=== PATIENT | male | born 1955 | race Caucasian/White ===

== ENCOUNTER 2020-08-15 11:43 | Observation (INO) ==
[2020-08-15] MEDS ORDERED: Naloxone 0.4 MG/ML INJ IVP PRN (14:34)
[2020-08-15] MEDS ORDERED: Ondansetron 4 MG/2 ML VIAL IVP PRN (14:34)
[2020-08-15] MEDS ORDERED: Acetaminophen 325 MG TABLET PO PRN (14:34)
[2020-08-15 14:40] LABS: Basophils % 0.4 %; Eosinophils # 0.3 K/mcL (0.0-0.6); Eosinophils % 4.7 %; Hematocrit 34.7 % (37.5-50.1); Hemoglobin 10.3 g/dL (12.9-16.9); Immature Granulocytes % 0.4 % (0-4); Lymphocytes % 14.2 %; Mean Corpuscular HGB Conc 29.7 g/dL (31.6-35.5); Mean Corpuscular Volume 104.5 fL (83.0-100.0); Mean Platelet Volume 10.2 fL (9.4-12.4); Monocytes # 0.6 K/mcL (0.0-1.3); Monocytes % 8.3 %; Platelet Count 264 K/mcL (140-400); Red Blood Count 3.32 M/mcL (4.19-5.50); Red Cell Distribution Width 14.4 % (11.5-14.5)
[2020-08-15 14:44] LABS: BUN/Creatinine Ratio 28 (6-26); Blood Urea Nitrogen 32 mg/dL (8-23); Calcium 9.1 mg/dL (8.6-10.3); Carbon Dioxide 30 mEq/L (23-29); Chloride 103 mEq/L (98-107); Glucose 189 mg/dL (70-105); Osmolality,Calculated 300 (280-300); Potassium 4.2 mEq/L (3.5-5.1); Sodium 139 mEq/L (136-145); eGFR For African Americans > 60 (> 60); eGFR For Non-African Americans > 60 (> 60)
[2020-08-15] MEDS ORDERED: 0.9 % Sodium Chloride 1,000 ML IVC SCH ×2 (14:45→18:15)
[2020-08-15] MEDS ORDERED: *HR* Dextrose 50 % in Water (Vial) 50 ML VIAL IVP PRN (17:32)
[2020-08-15] MEDS ORDERED: Dextrose Gel 15 GM/37.5 ML TUBE PO PRN ×2 (17:32)
[2020-08-15] MEDS ORDERED: D5% in Water 1,000 ML IVC PRN (17:32)
[2020-08-15] MEDS ORDERED: [UNRECOGNIZED DRUG - OTHER] IH SCH (21:00)
[2020-08-15] MEDS ORDERED: Insulin LISPRO 300 UNITS/3 ML VIAL SUBQ SCH (21:00)
[2020-08-15] MEDS ORDERED: SODIUM CHLORIDE FOR INHALATION 7% IH SCH (21:00)
[2020-08-15 21:34] LABS: Influenza A PCR Negative (Negative); Influenza B PCR Negative (Negative); Resp. Syncytial Virus PCR Negative (Negative)
[2020-08-15 21:39] LABS: SARS-CoV-2 by PCR (In House) Negative (Negative)
[2020-08-15] MEDS ORDERED: Ipratropium/Albuterol Neb 3 ML IH PRN (22:00)
[2020-08-16] MEDS ORDERED: Levothyroxine 25 MCG TABLET PO SCH (06:30)
[2020-08-16 07:09] LABS: Hematocrit 32.6 % (37.5-50.1); Hemoglobin 10.1 g/dL (12.9-16.9); Mean Corpuscular Hemoglobin 32.3 pg (28.0-33.3); Mean Corpuscular Volume 104.2 fL (83.0-100.0); Mean Platelet Volume 10.5 fL (9.4-12.4); Platelet Count 253 K/mcL (140-400); Red Blood Count 3.13 M/mcL (4.19-5.50); Red Cell Distribution Width 14.4 % (11.5-14.5); White Blood Count 6.6 K/mcL (4.3-11.1)
[2020-08-16] MEDS ORDERED: *HR* FentaNYL (PF) 100 MCG/2 ML VIAL ONE ×2 (07:16→09:40)
[2020-08-16] MEDS ORDERED: *HR* Midazolam HCl 2 MG/2 ML VIAL ONE (07:16)
[2020-08-16] MEDS ORDERED: *HR* Propofol 200 MG/20 ML VIAL IVP ONE ×2 (07:17→07:37)
[2020-08-16] MEDS ORDERED: *HR* Succinylcholine 200 MG/10 ML VIAL IVP ONE (07:19)
[2020-08-16] MEDS ORDERED: Lidocaine -MPF 2% 2 ML VIAL ONE (07:19)
[2020-08-16 07:28] LABS: BUN/Creatinine Ratio 31 (6-26); Blood Urea Nitrogen 32 mg/dL (8-23); Calcium 8.9 mg/dL (8.6-10.3); Carbon Dioxide 30 mEq/L (23-29); Chloride 102 mEq/L (98-107); Glucose 175 mg/dL (70-105); Magnesium 1.9 mg/dL (1.6-2.6); Osmolality,Calculated 295 (280-300); Potassium 4.2 mEq/L (3.5-5.1); Sodium 137 mEq/L (136-145); eGFR For African Americans > 60 (> 60); eGFR For Non-African Americans > 60 (> 60)
[2020-08-16] MEDS ORDERED: Ondansetron 4 MG/2 ML VIAL ONE (07:30)
[2020-08-16] MEDS ORDERED: Silver Nitrate Applicator 1 STICK..EA. TP ONE (08:01)
[2020-08-16] MEDS ORDERED: Lidocaine TOPICAL Soln 50 ML BOTTLE ONE (08:02)
[2020-08-16] MEDS ORDERED: Ondansetron 4 MG/2 ML VIAL IVP PRN ×3 (08:15→15:00)
[2020-08-16] MEDS ORDERED: *HR* FentaNYL (PF) 100 MCG/2 ML VIAL IVP PRN (08:15)
[2020-08-16] MEDS ORDERED: Albuterol 2.5 MG/3 ML NEBULIZER IH PRN ×2 (08:15→15:00)
[2020-08-16] MEDS ORDERED: Lidocaine/EPI 1:100k 2% 20 ML VIAL ONE (08:17)
[2020-08-16] MEDS ORDERED: Lidocaine -MPF 1% 5 ML AMPUL ONE (08:21)
[2020-08-16] MEDS ORDERED: Dexmedetomidine HCl 400 MCG/100 ML MLS IVC ONE (08:22)
[2020-08-16] MEDS ORDERED: Nystatin Cream 15 GM TUBE TP SCH (09:00)
[2020-08-16] MEDS ORDERED: Aspirin Enteric Coated 81 MG Tablet PO SCH (09:00)
[2020-08-16] MEDS ORDERED: Furosemide 40 MG TABLET PO SCH (09:00)
[2020-08-16 11:04] VITALS: BP 104/51
[2020-08-16] MEDS: Insulin LISPRO 300 UNITS/3 ML VIAL SUBQ SCH ×2 (11:22→11:26)
[2020-08-16] MEDS ORDERED: D5% in Water 1,000 ML IVC PRN (15:00)
[2020-08-16] MEDS ORDERED: *HR* Dextrose 50 % in Water (Vial) 50 ML VIAL IVP PRN (15:00)
[2020-08-16] MEDS ORDERED: Bisacodyl 10 MG RECTAL SUPPOSITORY RC PRN (15:00)
[2020-08-16] MEDS ORDERED: 0.9 % Sodium Chloride 1,000 ML IVC SCH (15:00)
[2020-08-16] MEDS ORDERED: Naloxone 0.4 MG/ML INJ IVP PRN (15:00)
[2020-08-16] MEDS ORDERED: Acetaminophen 325 MG TABLET PO PRN ×2 (15:00)
[2020-08-16] MEDS ORDERED: Ipratropium/Albuterol Neb 3 ML IH PRN (15:00)
[2020-08-16] MEDS ORDERED: Dextrose Gel 15 GM/37.5 ML TUBE PO PRN ×2 (15:00)
[2020-08-16] MEDS ORDERED: Insulin LISPRO 300 UNITS/3 ML VIAL SUBQ SCH ×2 (16:30→21:00)
[2020-08-16] MEDS ORDERED: Ondansetron ODT 4 MG TAB.RAPDIS PO PRN (16:46)
[2020-08-16] MEDS ORDERED: MENTHOL TP PRN (16:47)
[2020-08-16] MEDS ORDERED: SODIUM CHLORIDE FOR INHALATION 7% IH SCH (21:00)
[2020-08-16] MEDS ORDERED: [UNRECOGNIZED DRUG - OTHER] IH SCH (21:00)
[2020-08-17] MEDS ORDERED: Levothyroxine 25 MCG TABLET PO SCH (06:30)
[2020-08-17] MEDS ORDERED: Furosemide 40 MG TABLET PO SCH (09:00)
[2020-08-17] MEDS ORDERED: Insulin DETEMIR 100 UNIT/ML X5UNITS SUBQ SCH (09:00)
[2020-08-17] MEDS ORDERED: LEVOMEFOLATE CALCIUM 7.5 MG PO SCH (09:00)
[2020-08-17] MEDS ORDERED: Nystatin Cream 15 GM TUBE TP SCH (09:00)
[2020-08-17] MEDS ORDERED: Aspirin Enteric Coated 81 MG Tablet PO SCH (09:00)
== END 2020-08-16 19:30 ==
LOC: 3BNU 11:43 → EMEROOARM 11:43 → SUATTDRO 15:36 → 3BNU 16:46 → 2NENU 23:27
PROVIDERS: ADMIT Internal Medicine; ATTEND Family Medicine

== ENCOUNTER 2020-11-25 14:54 | Inpatient (IN) ==
[2020-11-25] MEDS ORDERED: Clindamycin 600 MG/50 ML 600 MG/50 ML IV.SOLN IVPB ONE (15:11)
[2020-11-25] MEDS ORDERED: Piperacillin/Tazobactam 3.375 GM in Water for inj. (sterile) 20 ML IVP ONE (15:23)
[2020-11-25] MEDS ORDERED: Isovue-370 500 ML BOTTLE IVP ONE (15:23)
[2020-11-25 15:36] LABS: Basophils % 0.2 %; Eosinophils # 0.1 K/mcL (0.0-0.6); Eosinophils % 0.5 %; Hematocrit 28.4 % (37.5-50.1); Hemoglobin 8.6 g/dL (12.9-16.9); Immature Granulocytes % 0.7 % (0-4); Lymphocytes # 0.7 K/mcL (0.6-4.6); Lymphocytes % 4.7 %; Mean Corpuscular HGB Conc 30.3 g/dL (31.6-35.5); Mean Corpuscular Volume 102.5 fL (83.0-100.0); Mean Platelet Volume 9.6 fL (9.4-12.4); Monocytes # 1.3 K/mcL (0.0-1.3); Monocytes % 8.3 %; Neutrophils # 13.1 K/mcL (1.6-8.9); Platelet Count 306 K/mcL (140-400); Red Blood Count 2.77 M/mcL (4.19-5.50); Red Cell Distribution Width 15.1 % (11.5-14.5); Segmented Neutrophils % 85.6 %; White Blood Count 15.3 K/mcL (4.3-11.1)
[2020-11-25 16:16] LABS: Albumin 2.8 g/dL (3.5-5.7); Albumin/Globulin Ratio 0.5 (1.1-2.2); Bilirubin,Direct 0.2 mg/dL (0.0-0.2); Bilirubin,Indirect 0.3 mg/dL (0.0-1.0); Bilirubin,Total 0.5 mg/dL (0.3-1.0); Calcium 8.5 mg/dL (8.6-10.3); Globulin 5.3 g/dL (2.4-3.5); Potassium 4.1 mEq/L (3.5-5.1); Total Protein 8.1 g/dL (6.4-8.9)
[2020-11-25] MEDS ORDERED: Albumin 25% 25gram/100mL 25 GM/100 ML IV.SOLN IVPB ONE (16:28)
[2020-11-25] MEDS: 0.9 % Sodium Chloride 1,000 ML IVC SCH ×2 (18:01→20:19)
[2020-11-25 19:06] LABS: Bacteria,Urine Moderate per hpf (None-Few); Bilirubin,Urine Negative (Negative); Blood,Urine Large (Negative); Clarity,Urine Ex.Turbid (Clear); Color,Urine Yellow (Yellow); Glucose,Urine (UA) Normal (Normal); Ketones,Urine Negative (Negative); Leukocyte Esterase,Urine Large (Negative); Nitrite,Urine Positive (Negative); PH,Urine 6.5 pH Units (5.0-8.0); Protein,Urine 70 mg/dL (Neg-Trace); RBC,Urine 50-100 per hpf (0-3); Specific Gravity,Urine 1.013 (1.010-1.025); Squamous Epithelial Cell,Urine Few per hpf (None-Few); Urobilinogen,Urine Normal (Normal); WBC,Urine TNTC per hpf (0-3)
[2020-11-25] MEDS ORDERED: Naloxone 0.4 MG/ML INJ IVP PRN (21:25)
[2020-11-25] MEDS ORDERED: D5% in Water 1,000 ML IVC PRN (21:30)
[2020-11-25] MEDS ORDERED: 0.9 % Sodium Chloride 1,000 ML IVC SCH (21:30)
[2020-11-25] MEDS ORDERED: *HR* Dextrose 50 % in Water (Vial) 50 ML VIAL IVP PRN (21:30)
[2020-11-25] MEDS ORDERED: Dextrose Gel 15 GM/37.5 ML TUBE PO PRN ×2 (21:30)
[2020-11-25] MEDS ORDERED: Ipratropium/Albuterol Neb 3 ML IH PRN (21:33)
[2020-11-25] MEDS: Insulin DETEMIR 100 UNIT/ML X5UNITS SUBQ SCH (23:10)
[2020-11-26] MEDS: Insulin LISPRO 300 UNITS/3 ML VIAL SUBQ SCH ×4 (00:33→17:05)
[2020-11-26] MEDS: Clindamycin 600 MG/50 ML 600 MG/50 ML IV.SOLN IVPB SCH ×3 (01:19→15:06)
[2020-11-26] MEDS: Piperacillin/Tazobactam 3.375 GM in 0.9 % Sodium Chloride Mini Bag 100 ML IVPB SCH ×3 (01:20→15:06)
[2020-11-26 06:22] LABS: Basophils % 0.3 %; Eosinophils # 0.1 K/mcL (0.0-0.6); Eosinophils % 0.3 %; Hematocrit 24.9 % (37.5-50.1); Hemoglobin 7.4 g/dL (12.9-16.9); Immature Granulocytes % 0.5 % (0-4); Lymphocytes # 0.8 K/mcL (0.6-4.6); Lymphocytes % 5.6 %; Mean Corpuscular HGB Conc 29.7 g/dL (31.6-35.5); Mean Corpuscular Hemoglobin 30.5 pg (28.0-33.3); Mean Corpuscular Volume 102.5 fL (83.0-100.0); Mean Platelet Volume 9.7 fL (9.4-12.4); Monocytes # 1.6 K/mcL (0.0-1.3); Monocytes % 10.7 %; Neutrophils # 12.3 K/mcL (1.6-8.9); Platelet Count 260 K/mcL (140-400); Red Blood Count 2.43 M/mcL (4.19-5.50); Segmented Neutrophils % 82.6 %; White Blood Count 14.9 K/mcL (4.3-11.1)
[2020-11-26] MEDS: 0.9 % Sodium Chloride 1,000 ML IVC SCH ×2 (06:23→13:16)
[2020-11-26 06:47] LABS: Albumin 2.8 g/dL (3.5-5.7); Albumin/Globulin Ratio 0.7 (1.1-2.2); Bilirubin,Total 0.5 mg/dL (0.3-1.0); Potassium 3.8 mEq/L (3.5-5.1); Total Protein 6.8 g/dL (6.4-8.9)
[2020-11-26 07:17] LABS: Estimated Average Glucose 134 mg/dl; Hemoglobin A1C 6.3 %
[2020-11-26] MEDS ORDERED: 0.9 % Sodium Chloride 1,000 ML IVC ONE (13:59)
[2020-11-26] MEDS ORDERED: Bisacodyl 10 MG RECTAL SUPPOSITORY RC PRN (16:11)
[2020-11-26] MEDS ORDERED: Lidocaine -MPF 2% 5 ML VIAL INFILT ONE ×2 (16:34→16:41)
[2020-11-26] MEDS ORDERED: *HR* HYDROmorphone (PF) 1 MG/ML SYRINGE IVP ONE (16:34)
[2020-11-26] MEDS ORDERED: *HR* LORazepam 2 MG/ML VIAL IVP ONE (16:35)
[2020-11-26] MEDS: Norepinephrine 4 MG/254 ML IV.SOLN IVC SCH (19:34)
[2020-11-26] MEDS: Insulin DETEMIR 100 UNIT/ML X5UNITS SUBQ SCH (21:12)
[2020-11-26] MEDS: Albumin Human 5% 12.5 GM/250 ML IV.SOLN IVC SCH (21:18)
[2020-11-27] MEDS: Clindamycin 600 MG/50 ML 600 MG/50 ML IV.SOLN IVPB SCH ×3 (00:30→16:13)
[2020-11-27] MEDS: Piperacillin/Tazobactam 3.375 GM in 0.9 % Sodium Chloride Mini Bag 100 ML IVPB SCH ×3 (00:31→16:13)
[2020-11-27] MEDS: Albumin Human 5% 12.5 GM/250 ML IV.SOLN IVC SCH (00:32)
[2020-11-27] MEDS: Insulin LISPRO 300 UNITS/3 ML VIAL SUBQ SCH ×4 (03:08→18:21)
[2020-11-27 03:35] LABS: Basophils % 0.4 %; Eosinophils # 0.2 K/mcL (0.0-0.6); Eosinophils % 1.4 %; Hematocrit 22.9 % (37.5-50.1); Hemoglobin 6.9 g/dL (12.9-16.9); Immature Granulocytes % 0.6 % (0-4); Lymphocytes # 0.6 K/mcL (0.6-4.6); Lymphocytes % 5.7 %; Mean Corpuscular HGB Conc 30.1 g/dL (31.6-35.5); Mean Corpuscular Hemoglobin 30.8 pg (28.0-33.3); Mean Corpuscular Volume 102.2 fL (83.0-100.0); Mean Platelet Volume 9.6 fL (9.4-12.4); Monocytes % 9.7 %; Neutrophils # 8.6 K/mcL (1.6-8.9); Platelet Count 261 K/mcL (140-400); Red Blood Count 2.24 M/mcL (4.19-5.50); Red Cell Distribution Width 15.2 % (11.5-14.5); Segmented Neutrophils % 82.2 %; White Blood Count 10.5 K/mcL (4.3-11.1)
[2020-11-27 03:45] LABS: INR 1.6; Prothrombin Time 17.8 Seconds (9.4-12.1)
[2020-11-27 03:47] LABS: Activated Partial Thrombo Time 28.8 Seconds (26.0-36.0)
[2020-11-27 03:58] LABS: Albumin 2.7 g/dL (3.5-5.7); Albumin/Globulin Ratio 0.6 (1.1-2.2); Bilirubin,Indirect 0.4 mg/dL (0.0-1.0); Bilirubin,Total 0.4 mg/dL (0.3-1.0); Calcium 7.8 mg/dL (8.6-10.3); Globulin 4.3 g/dL (2.4-3.5); Magnesium 1.8 mg/dL (1.6-2.6); Phosphorous 4.5 mg/dL (2.7-4.5); Potassium 3.7 mEq/L (3.5-5.1)
[2020-11-27] MEDS ORDERED: *HR* Midazolam HCl 5 MG/5 ML VIAL IVP ONE ×2 (08:36→08:49)
[2020-11-27] MEDS ORDERED: Aspirin Enteric Coated 81 MG Tablet PO SCH (09:00)
[2020-11-27] MEDS ORDERED: Nystatin Cream 15 GM TUBE TP SCH (09:00)
[2020-11-27] MEDS ORDERED: LEVOMEFOLATE CALCIUM 7.5 MG PO SCH (09:00)
[2020-11-27] MEDS: Levothyroxine 25 MCG TABLET PO SCH (09:52)
[2020-11-27 12:26] LABS: Basophils # 0.1 K/mcL (0.0-0.2); Basophils % 0.5 %; Eosinophils # 0.1 K/mcL (0.0-0.6); Eosinophils % 1.4 %; Hematocrit 22.5 % (37.5-50.1); Hemoglobin 6.7 g/dL (12.9-16.9); Immature Granulocytes % 0.4 % (0-4); Lymphocytes # 0.5 K/mcL (0.6-4.6); Lymphocytes % 5.4 %; Mean Corpuscular HGB Conc 29.8 g/dL (31.6-35.5); Mean Corpuscular Hemoglobin 30.6 pg (28.0-33.3); Mean Corpuscular Volume 102.7 fL (83.0-100.0); Mean Platelet Volume 9.9 fL (9.4-12.4); Neutrophils # 7.8 K/mcL (1.6-8.9); Platelet Count 265 K/mcL (140-400); Red Blood Count 2.19 M/mcL (4.19-5.50); Red Cell Distribution Width 15.2 % (11.5-14.5); Segmented Neutrophils % 82.3 %; White Blood Count 9.5 K/mcL (4.3-11.1)
[2020-11-27 12:57] LABS: Uric Acid 7.3 mg/dL (2.3-7.6)
[2020-11-27] MEDS: *HR* Heparin 5,000 UNIT/ML VIAL SQ SCH ×2 (14:30→20:35)
[2020-11-27] MEDS: Norepinephrine 4 MG/254 ML IV.SOLN IVC SCH (19:19)
[2020-11-27] MEDS: Insulin DETEMIR 100 UNIT/ML X5UNITS SUBQ SCH (21:05)
[2020-11-27 21:21] LABS: Protein/Creatinine Ratio,Urine 3.02 mg/mg (0.00-0.20); Sodium, Urine 40.6 mEq/L
[2020-11-28] MEDS: Insulin LISPRO 300 UNITS/3 ML VIAL SUBQ SCH ×5 (00:03→23:55)
[2020-11-28] MEDS: Clindamycin 600 MG/50 ML 600 MG/50 ML IV.SOLN IVPB SCH ×3 (00:06→15:48)
[2020-11-28] MEDS: Piperacillin/Tazobactam 3.375 GM in 0.9 % Sodium Chloride Mini Bag 100 ML IVPB SCH ×4 (00:06→23:57)
[2020-11-28 04:20] LABS: Basophils % 0.5 %; Eosinophils # 0.2 K/mcL (0.0-0.6); Eosinophils % 3.3 %; Hematocrit 22.5 % (37.5-50.1); Hemoglobin 6.6 g/dL (12.9-16.9); Immature Granulocytes % 0.5 % (0-4); Lymphocytes # 0.5 K/mcL (0.6-4.6); Lymphocytes % 7.9 %; Mean Corpuscular HGB Conc 29.3 g/dL (31.6-35.5); Mean Corpuscular Hemoglobin 30.1 pg (28.0-33.3); Mean Corpuscular Volume 102.7 fL (83.0-100.0); Mean Platelet Volume 9.8 fL (9.4-12.4); Monocytes # 0.6 K/mcL (0.0-1.3); Monocytes % 10.5 %; Neutrophils # 4.6 K/mcL (1.6-8.9); Platelet Count 240 K/mcL (140-400); Red Blood Count 2.19 M/mcL (4.19-5.50); Red Cell Distribution Width 15.3 % (11.5-14.5); Segmented Neutrophils % 77.3 %
[2020-11-28 04:29] LABS: VBG Ionized Calcium 1.13 mmol/L (1.15-1.35)
[2020-11-28 04:38] LABS: Albumin 2.6 g/dL (3.5-5.7); Albumin/Globulin Ratio 0.6 (1.1-2.2); Bilirubin,Direct 0.1 mg/dL (0.0-0.2); Bilirubin,Indirect 0.3 mg/dL (0.0-1.0); Bilirubin,Total 0.4 mg/dL (0.3-1.0); Calcium 7.6 mg/dL (8.6-10.3); Globulin 4.2 g/dL (2.4-3.5); Magnesium 1.8 mg/dL (1.6-2.6); Phosphorous 4.6 mg/dL (2.7-4.5); Potassium 3.7 mEq/L (3.5-5.1); Total Protein 6.8 g/dL (6.4-8.9)
[2020-11-28] MEDS: *HR* Heparin 5,000 UNIT/ML VIAL SQ SCH ×3 (05:44→20:52)
[2020-11-28] MEDS ORDERED: Bisacodyl 10 MG RECTAL SUPPOSITORY RC PRN (06:40)
[2020-11-28] MEDS ORDERED: Naloxone 0.4 MG/ML INJ IVP PRN (06:40)
[2020-11-28] MEDS ORDERED: *HR* Dextrose 50 % in Water (Vial) 50 ML VIAL IVP PRN (06:40)
[2020-11-28] MEDS ORDERED: D5% in Water 1,000 ML IVC PRN (06:40)
[2020-11-28] MEDS ORDERED: Dextrose Gel 15 GM/37.5 ML TUBE PO PRN ×2 (06:40)
[2020-11-28] MEDS ORDERED: Ipratropium/Albuterol Neb 3 ML IH PRN (06:40)
[2020-11-28] MEDS: Chlorhexidine Rinse 15 ML MOUTHWASH PO SCH ×3 (06:51→20:52)
[2020-11-28] MEDS: Collagenase Oint 1 APPL GRAM TP SCH ×3 (06:51→19:35)
[2020-11-28] MEDS: Silver Sulfadiazine 50 GM TUBE TP SCH ×3 (07:33→19:35)
[2020-11-28] MEDS: Aspirin Enteric Coated 81 MG Tablet PO SCH (08:53)
[2020-11-28] MEDS ORDERED: [UNRECOGNIZED DRUG - OTHER] PO SCH (09:00)
[2020-11-28] MEDS: Nystatin Cream 15 GM TUBE TP SCH (09:23)
[2020-11-28] MEDS ORDERED: 0.9 % Sodium Chloride 250 ML ONE (09:48)
[2020-11-28] MEDS: Albumin 25% 25gram/100mL 25 GM/100 ML IV.SOLN IVPB SCH ×2 (15:44→23:57)
[2020-11-28 16:04] LABS: Hematocrit 24.1 % (37.5-50.1); Hemoglobin 7.2 g/dL (12.9-16.9)
[2020-11-28 18:33] LABS: Ferritin 260 ng/mL (20-250); Iron 73 mcg/dL (65-175)
[2020-11-28 19:16] LABS: Folate > 22.3 ng/mL (3.0-16.0); Vitamin B12 859 pg/mL (250-1100)
[2020-11-28] MEDS: Insulin DETEMIR 100 UNIT/ML X5UNITS SUBQ SCH (21:28)
[2020-11-29 00:20] LABS: Hematocrit 22.9 % (37.5-50.1); Hemoglobin 6.9 g/dL (12.9-16.9)
[2020-11-29 04:24] LABS: VBG Ionized Calcium 1.08 mmol/L (1.15-1.35)
[2020-11-29 04:36] LABS: Basophils % 0.6 %; Eosinophils # 0.2 K/mcL (0.0-0.6); Eosinophils % 3.3 %; Hematocrit 22.2 % (37.5-50.1); Hemoglobin 6.6 g/dL (12.9-16.9); Immature Granulocytes % 0.2 % (0-4); Lymphocytes # 0.5 K/mcL (0.6-4.6); Lymphocytes % 9.3 %; Mean Corpuscular HGB Conc 29.7 g/dL (31.6-35.5); Mean Corpuscular Hemoglobin 30.3 pg (28.0-33.3); Mean Corpuscular Volume 101.8 fL (83.0-100.0); Monocytes # 0.6 K/mcL (0.0-1.3); Neutrophils # 3.7 K/mcL (1.6-8.9); Platelet Count 223 K/mcL (140-400); Red Blood Count 2.18 M/mcL (4.19-5.50); Red Cell Distribution Width 16.2 % (11.5-14.5); Segmented Neutrophils % 74.6 %; White Blood Count 4.9 K/mcL (4.3-11.1)
[2020-11-29 04:50] LABS: Albumin 2.8 g/dL (3.5-5.7); Albumin/Globulin Ratio 0.7 (1.1-2.2); Bilirubin,Direct 0.3 mg/dL (0.0-0.2); Bilirubin,Indirect 0.2 mg/dL (0.0-1.0); Bilirubin,Total 0.5 mg/dL (0.3-1.0); Calcium 7.5 mg/dL (8.6-10.3); Globulin 3.9 g/dL (2.4-3.5); Magnesium 1.8 mg/dL (1.6-2.6); Phosphorous 4.8 mg/dL (2.7-4.5); Potassium 3.7 mEq/L (3.5-5.1); Total Protein 6.7 g/dL (6.4-8.9)
[2020-11-29] MEDS: *HR* Heparin 5,000 UNIT/ML VIAL SQ SCH ×3 (05:57→20:47)
[2020-11-29] MEDS: Insulin LISPRO 300 UNITS/3 ML VIAL SUBQ SCH ×3 (05:58→18:05)
[2020-11-29] MEDS: Levothyroxine 25 MCG TABLET PO SCH ×2 (05:59→07:24)
[2020-11-29] MEDS ORDERED: 0.9 % Sodium Chloride 250 ML ONE ×2 (06:43→14:24)
[2020-11-29] MEDS: Albumin 25% 25gram/100mL 25 GM/100 ML IV.SOLN IVPB SCH (08:52)
[2020-11-29] MEDS: Piperacillin/Tazobactam 3.375 GM in 0.9 % Sodium Chloride Mini Bag 100 ML IVPB SCH ×2 (09:01→18:03)
[2020-11-29] MEDS: Aspirin Enteric Coated 81 MG Tablet PO SCH (09:05)
[2020-11-29] MEDS: Nystatin Cream 15 GM TUBE TP SCH (09:05)
[2020-11-29] MEDS: Chlorhexidine Rinse 15 ML MOUTHWASH PO SCH ×2 (09:05→20:48)
[2020-11-29] MEDS: Collagenase Oint 1 APPL GRAM TP SCH ×2 (09:06→21:08)
[2020-11-29] MEDS: Pantoprazole 40 MG VIAL IVP SCH (17:30)
[2020-11-29] MEDS: Silver Sulfadiazine 50 GM TUBE TP SCH ×2 (18:05→21:08)
[2020-11-29] MEDS: Insulin DETEMIR 100 UNIT/ML X5UNITS SUBQ SCH (20:48)
[2020-11-29 21:41] LABS: Hematocrit 23.4 % (37.5-50.1); Hemoglobin 7.2 g/dL (12.9-16.9)
[2020-11-30] MEDS: Insulin LISPRO 300 UNITS/3 ML VIAL SUBQ SCH ×5 (00:46→23:47)
[2020-11-30] MEDS: Piperacillin/Tazobactam 3.375 GM in 0.9 % Sodium Chloride Mini Bag 100 ML IVPB SCH ×4 (00:50→23:37)
[2020-11-30] MEDS ORDERED: Acetaminophen 325 MG TABLET PO PRN (03:51)
[2020-11-30 05:51] LABS: % Iron Saturation 48 % (20-55); Transferrin 108 mg/dL (203-362)
[2020-11-30 05:53] LABS: Basophils % 0.2 %; Eosinophils # 0.1 K/mcL (0.0-0.6); Hematocrit 23.4 % (37.5-50.1); Immature Granulocytes % 0.5 % (0-4); Lymphocytes # 0.5 K/mcL (0.6-4.6); Lymphocytes % 10.7 %; Mean Corpuscular HGB Conc 29.9 g/dL (31.6-35.5); Mean Corpuscular Hemoglobin 29.8 pg (28.0-33.3); Mean Corpuscular Volume 99.6 fL (83.0-100.0); Mean Platelet Volume 9.8 fL (9.4-12.4); Monocytes # 0.5 K/mcL (0.0-1.3); Monocytes % 11.2 %; Neutrophils # 3.3 K/mcL (1.6-8.9); Platelet Count 214 K/mcL (140-400); Red Blood Count 2.35 M/mcL (4.19-5.50); Red Cell Distribution Width 16.2 % (11.5-14.5); Segmented Neutrophils % 74.4 %; White Blood Count 4.4 K/mcL (4.3-11.1)
[2020-11-30 05:59] LABS: VBG Ionized Calcium 1.08 mmol/L (1.15-1.35)
[2020-11-30 06:16] LABS: Albumin 2.8 g/dL (3.5-5.7); Albumin/Globulin Ratio 0.8 (1.1-2.2); Bilirubin,Direct 0.1 mg/dL (0.0-0.2); Bilirubin,Indirect 0.4 mg/dL (0.0-1.0); Bilirubin,Total 0.5 mg/dL (0.3-1.0); Calcium 7.3 mg/dL (8.6-10.3); Globulin 3.6 g/dL (2.4-3.5); Magnesium 1.7 mg/dL (1.6-2.6); Phosphorous 3.2 mg/dL (2.7-4.5); Potassium 3.9 mEq/L (3.5-5.1); Total Protein 6.4 g/dL (6.4-8.9)
[2020-11-30] MEDS: Pantoprazole 40 MG VIAL IVP SCH ×3 (06:29→17:34)
[2020-11-30] MEDS: *HR* Heparin 5,000 UNIT/ML VIAL SQ SCH ×4 (06:29→21:10)
[2020-11-30] MEDS: Levothyroxine 25 MCG TABLET PO SCH ×2 (06:32→08:19)
[2020-11-30] MEDS: Aspirin Enteric Coated 81 MG Tablet PO SCH (08:19)
[2020-11-30] MEDS: Chlorhexidine Rinse 15 ML MOUTHWASH PO SCH ×2 (08:20→21:10)
[2020-11-30] MEDS: Nystatin Cream 15 GM TUBE TP SCH (10:31)
[2020-11-30] MEDS: Collagenase Oint 1 APPL GRAM TP SCH (10:31)
[2020-11-30] MEDS: Silver Sulfadiazine 50 GM TUBE TP SCH (17:35)
[2020-11-30] MEDS: Insulin DETEMIR 100 UNIT/ML X5UNITS SUBQ SCH (21:11)
[2020-12-01] MEDS: Collagenase Oint 1 APPL GRAM TP SCH ×3 (00:17→22:09)
[2020-12-01] MEDS: Silver Sulfadiazine 50 GM TUBE TP SCH ×3 (00:17→22:09)
[2020-12-01 02:55] LABS: Basophils % 0.2 %; Eosinophils # 0.2 K/mcL (0.0-0.6); Eosinophils % 4.6 %; Hematocrit 23.5 % (37.5-50.1); Hemoglobin 7.3 g/dL (12.9-16.9); Immature Granulocytes % 0.7 % (0-4); Lymphocytes # 0.6 K/mcL (0.6-4.6); Lymphocytes % 13.5 %; Mean Corpuscular HGB Conc 31.1 g/dL (31.6-35.5); Mean Corpuscular Hemoglobin 30.4 pg (28.0-33.3); Mean Corpuscular Volume 97.9 fL (83.0-100.0); Mean Platelet Volume 10.1 fL (9.4-12.4); Monocytes # 0.4 K/mcL (0.0-1.3); Monocytes % 8.9 %; Neutrophils # 3.2 K/mcL (1.6-8.9); Platelet Count 230 K/mcL (140-400); Red Cell Distribution Width 16.2 % (11.5-14.5); Segmented Neutrophils % 72.1 %; White Blood Count 4.4 K/mcL (4.3-11.1)
[2020-12-01 03:02] LABS: VBG Ionized Calcium 1.07 mmol/L (1.15-1.35)
[2020-12-01 03:15] LABS: Albumin 2.9 g/dL (3.5-5.7); Albumin/Globulin Ratio 0.8 (1.1-2.2); Bilirubin,Direct 0.1 mg/dL (0.0-0.2); Bilirubin,Indirect 0.3 mg/dL (0.0-1.0); Bilirubin,Total 0.4 mg/dL (0.3-1.0); Calcium 7.4 mg/dL (8.6-10.3); Globulin 3.6 g/dL (2.4-3.5); Magnesium 1.7 mg/dL (1.6-2.6); Phosphorous 3.4 mg/dL (2.7-4.5); Potassium 3.7 mEq/L (3.5-5.1); Total Protein 6.5 g/dL (6.4-8.9)
[2020-12-01] MEDS: Levothyroxine 25 MCG TABLET PO SCH (06:33)
[2020-12-01] MEDS: Pantoprazole 40 MG VIAL IVP SCH ×2 (06:34→18:14)
[2020-12-01] MEDS: Insulin LISPRO 300 UNITS/3 ML VIAL SUBQ SCH ×3 (06:36→18:13)
[2020-12-01] MEDS: *HR* Heparin 5,000 UNIT/ML VIAL SQ SCH ×4 (06:36→22:09)
[2020-12-01] MEDS: Piperacillin/Tazobactam 3.375 GM in 0.9 % Sodium Chloride Mini Bag 100 ML IVPB SCH ×2 (09:05→15:18)
[2020-12-01] MEDS: Chlorhexidine Rinse 15 ML MOUTHWASH PO SCH ×2 (09:06→22:09)
[2020-12-01] MEDS: Aspirin Enteric Coated 81 MG Tablet PO SCH (09:06)
[2020-12-01] MEDS: Nystatin Cream 15 GM TUBE TP SCH (09:07)
[2020-12-01] MEDS: Insulin DETEMIR 100 UNIT/ML X5UNITS SUBQ SCH (22:01)
[2020-12-02] MEDS: Insulin LISPRO 300 UNITS/3 ML VIAL SUBQ SCH ×4 (00:19→18:06)
[2020-12-02] MEDS: Piperacillin/Tazobactam 3.375 GM in 0.9 % Sodium Chloride Mini Bag 100 ML IVPB SCH ×3 (00:19→16:19)
[2020-12-02 04:03] LABS: Basophils % 0.2 %; Eosinophils # 0.1 K/mcL (0.0-0.6); Hematocrit 25.4 % (37.5-50.1); Hemoglobin 7.7 g/dL (12.9-16.9); Immature Granulocytes % 0.4 % (0-4); Lymphocytes # 0.6 K/mcL (0.6-4.6); Lymphocytes % 12.7 %; Mean Corpuscular HGB Conc 30.3 g/dL (31.6-35.5); Mean Corpuscular Hemoglobin 29.7 pg (28.0-33.3); Mean Corpuscular Volume 98.1 fL (83.0-100.0); Monocytes # 0.3 K/mcL (0.0-1.3); Monocytes % 5.7 %; Neutrophils # 3.7 K/mcL (1.6-8.9); Platelet Count 235 K/mcL (140-400); Red Blood Count 2.59 M/mcL (4.19-5.50); Red Cell Distribution Width 16.3 % (11.5-14.5); White Blood Count 4.7 K/mcL (4.3-11.1)
[2020-12-02 04:22] LABS: Albumin 2.8 g/dL (3.5-5.7); Albumin/Globulin Ratio 0.7 (1.1-2.2); Bilirubin,Direct 1.5 mg/dL (0.0-0.2); Bilirubin,Indirect 0.5 mg/dL (0.0-1.0); Calcium 7.6 mg/dL (8.6-10.3); Globulin 3.8 g/dL (2.4-3.5); Magnesium 1.7 mg/dL (1.6-2.6); Potassium 3.8 mEq/L (3.5-5.1); Total Protein 6.6 g/dL (6.4-8.9)
[2020-12-02] MEDS: Pantoprazole 40 MG VIAL IVP SCH ×2 (08:49→18:06)
[2020-12-02] MEDS: *HR* Heparin 5,000 UNIT/ML VIAL SQ SCH ×2 (08:49→13:52)
[2020-12-02] MEDS: Aspirin Enteric Coated 81 MG Tablet PO SCH (09:02)
[2020-12-02] MEDS: Levothyroxine 25 MCG TABLET PO SCH (09:02)
[2020-12-02] MEDS: Silver Sulfadiazine 50 GM TUBE TP SCH ×2 (09:37→21:55)
[2020-12-02] MEDS: Chlorhexidine Rinse 15 ML MOUTHWASH PO SCH ×2 (09:37→21:55)
[2020-12-02] MEDS: Collagenase Oint 1 APPL GRAM TP SCH (09:37)
[2020-12-02] MEDS: Nystatin Cream 15 GM TUBE TP SCH (09:37)
[2020-12-02] MEDS: Insulin DETEMIR 100 UNIT/ML X5UNITS SUBQ SCH (21:57)
[2020-12-03] MEDS: *HR* Heparin 5,000 UNIT/ML VIAL SQ SCH ×4 (00:04→20:03)
[2020-12-03] MEDS: Insulin LISPRO 300 UNITS/3 ML VIAL SUBQ SCH ×5 (00:04→20:00)
[2020-12-03] MEDS: Piperacillin/Tazobactam 3.375 GM in 0.9 % Sodium Chloride Mini Bag 100 ML IVPB SCH ×3 (00:05→16:15)
[2020-12-03 04:55] LABS: VBG Ionized Calcium 1.14 mmol/L (1.15-1.35)
[2020-12-03 05:12] LABS: Eosinophils # 0.3 K/mcL (0.0-0.6); Eosinophils % 5.6 %; Hematocrit 25.1 % (37.5-50.1); Hemoglobin 7.7 g/dL (12.9-16.9); Immature Granulocytes % 0.4 % (0-4); Lymphocytes # 0.5 K/mcL (0.6-4.6); Lymphocytes % 10.8 %; Mean Corpuscular HGB Conc 30.7 g/dL (31.6-35.5); Mean Corpuscular Hemoglobin 30.3 pg (28.0-33.3); Mean Corpuscular Volume 98.8 fL (83.0-100.0); Mean Platelet Volume 10.1 fL (9.4-12.4); Monocytes # 0.3 K/mcL (0.0-1.3); Monocytes % 6.1 %; Neutrophils # 3.4 K/mcL (1.6-8.9); Platelet Count 240 K/mcL (140-400); Red Blood Count 2.54 M/mcL (4.19-5.50); Red Cell Distribution Width 16.2 % (11.5-14.5); Segmented Neutrophils % 77.1 %; White Blood Count 4.5 K/mcL (4.3-11.1)
[2020-12-03 05:16] LABS: Alanine Aminotransferase 39 Units/L (7-52); Albumin 2.8 g/dL (3.5-5.7); Albumin/Globulin Ratio 0.8 (1.1-2.2); Alkaline Phosphatase 578 Units/L (34-104); Aspartate Amino Transferase 92 Units/L (13-39); BUN/Creatinine Ratio 14 (6-26); Bilirubin,Direct 0.9 mg/dL (0.0-0.2); Bilirubin,Indirect 0.5 mg/dL (0.0-1.0); Bilirubin,Total 1.4 mg/dL (0.3-1.0); Blood Urea Nitrogen 20 mg/dL (8-23); Calcium 7.9 mg/dL (8.6-10.3); Carbon Dioxide 21 mEq/L (23-29); Chloride 108 mEq/L (98-107); Globulin 3.7 g/dL (2.4-3.5); Glucose 132 mg/dL (70-105); Magnesium 1.7 mg/dL (1.6-2.6); Osmolality,Calculated 286 (280-300); Phosphorous 2.6 mg/dL (2.7-4.5); Sodium 136 mEq/L (136-145); Total Protein 6.5 g/dL (6.4-8.9); eGFR For African Americans > 60 (> 60); eGFR For Non-African Americans 50 (> 60)
[2020-12-03] MEDS: Pantoprazole 40 MG VIAL IVP SCH ×2 (06:15→16:16)
[2020-12-03] MEDS: Levothyroxine 25 MCG TABLET PO SCH (06:21)
[2020-12-03] MEDS: Aspirin Enteric Coated 81 MG Tablet PO SCH (09:23)
[2020-12-03] MEDS: Chlorhexidine Rinse 15 ML MOUTHWASH PO SCH ×3 (09:24→20:03)
[2020-12-03] MEDS: Nystatin Cream 15 GM TUBE TP SCH (10:00)
[2020-12-03] MEDS: Silver Sulfadiazine 50 GM TUBE TP SCH ×2 (10:06→23:23)
[2020-12-03] MEDS: Acetaminophen 325 MG TABLET PO PRN (10:36)
[2020-12-03] MEDS: DAPTOmycin 800 MG in 0.9 % Sodium Chloride 100 ML IVPB SCH (18:38)
[2020-12-03] MEDS: Insulin DETEMIR 100 UNIT/ML X5UNITS SUBQ SCH (20:03)
[2020-12-04] MEDS: Piperacillin/Tazobactam 3.375 GM in 0.9 % Sodium Chloride Mini Bag 100 ML IVPB SCH ×3 (00:55→15:40)
[2020-12-04 05:16] LABS: Hematocrit 25.2 % (37.5-50.1); Hemoglobin 7.8 g/dL (12.9-16.9); Mean Corpuscular Hemoglobin 30.1 pg (28.0-33.3); Mean Corpuscular Volume 97.3 fL (83.0-100.0); Platelet Count 210 K/mcL (140-400); Red Blood Count 2.59 M/mcL (4.19-5.50); Red Cell Distribution Width 16.3 % (11.5-14.5); White Blood Count 5.2 K/mcL (4.3-11.1)
[2020-12-04 05:24] LABS: INR 1.5
[2020-12-04 05:26] LABS: Activated Partial Thrombo Time 34.5 Seconds (26.0-36.0)
[2020-12-04 05:35] LABS: Alanine Aminotransferase 24 Units/L (7-52); Albumin 2.5 g/dL (3.5-5.7); Albumin/Globulin Ratio 0.8 (1.1-2.2); Alkaline Phosphatase 427 Units/L (34-104); Aspartate Amino Transferase 36 Units/L (13-39); BUN/Creatinine Ratio 15 (6-26); Blood Urea Nitrogen 20 mg/dL (8-23); Calcium 7.1 mg/dL (8.6-10.3); Carbon Dioxide 19 mEq/L (23-29); Chloride 111 mEq/L (98-107); Globulin 3.3 g/dL (2.4-3.5); Glucose 137 mg/dL (70-105); Osmolality,Calculated 289 (280-300); Potassium 3.5 mEq/L (3.5-5.1); Sodium 137 mEq/L (136-145); Total Protein 5.8 g/dL (6.4-8.9); eGFR For African Americans > 60 (> 60); eGFR For Non-African Americans 54 (> 60)
[2020-12-04] MEDS: Pantoprazole 40 MG VIAL IVP SCH ×3 (06:02→16:11)
[2020-12-04] MEDS: *HR* Heparin 5,000 UNIT/ML VIAL SQ SCH ×4 (06:02→21:36)
[2020-12-04] MEDS: Levothyroxine 25 MCG TABLET PO SCH ×2 (06:03→08:59)
[2020-12-04 06:13] LABS: Bacteria,Urine Few per hpf (None-Few); Bilirubin,Urine Negative (Negative); Blood,Urine Large (Negative); Clarity,Urine Ex.Turbid (Clear); Color,Urine Yellow (Yellow); Glucose,Urine (UA) Normal (Normal); Ketones,Urine Negative (Negative); Leukocyte Esterase,Urine Large (Negative); Mucus,Urine Few per lpf (None-Few); Nitrite,Urine Negative (Negative); PH,Urine 6.5 pH Units (5.0-8.0); Protein,Urine 70 mg/dL (Neg-Trace); RBC,Urine 15-30 per hpf (0-3); Specific Gravity,Urine 1.009 (1.010-1.025); Squamous Epithelial Cell,Urine Few per hpf (None-Few); WBC,Urine TNTC per hpf (0-3)
[2020-12-04] MEDS: Insulin LISPRO 300 UNITS/3 ML VIAL SUBQ SCH ×4 (08:19→21:37)
[2020-12-04] MEDS: Aspirin Enteric Coated 81 MG Tablet PO SCH (08:28)
[2020-12-04] MEDS: Chlorhexidine Rinse 15 ML MOUTHWASH PO SCH ×2 (08:28→21:35)
[2020-12-04 08:52] LABS: VBG Ionized Calcium 1.13 mmol/L (1.15-1.35)
[2020-12-04] MEDS: Nystatin Cream 15 GM TUBE TP SCH (09:46)
[2020-12-04] MEDS: Silver Sulfadiazine 50 GM TUBE TP SCH ×2 (09:47→21:38)
[2020-12-04] MEDS ORDERED: Lidocaine Viscous Oral Soln 15 ML SOLUTION ONE (12:01)
[2020-12-04] MEDS ORDERED: *HR* Midazolam HCl 2 MG/2 ML VIAL IV ONE (12:30)
[2020-12-04] MEDS: DAPTOmycin 800 MG in 0.9 % Sodium Chloride 100 ML IVPB SCH (16:02)
[2020-12-04] MEDS: Insulin DETEMIR 100 UNIT/ML X5UNITS SUBQ SCH (21:35)
[2020-12-05] MEDS: Piperacillin/Tazobactam 3.375 GM in 0.9 % Sodium Chloride Mini Bag 100 ML IVPB SCH ×3 (00:45→15:25)
[2020-12-05] MEDS: Pantoprazole 40 MG VIAL IVP SCH ×2 (04:52→08:13)
[2020-12-05] MEDS: *HR* Heparin 5,000 UNIT/ML VIAL SQ SCH ×3 (04:52→21:46)
[2020-12-05 06:05] LABS: Hematocrit 25.7 % (37.5-50.1); Hemoglobin 7.9 g/dL (12.9-16.9); Mean Corpuscular HGB Conc 30.7 g/dL (31.6-35.5); Mean Corpuscular Hemoglobin 30.2 pg (28.0-33.3); Mean Corpuscular Volume 98.1 fL (83.0-100.0); Mean Platelet Volume 10.1 fL (9.4-12.4); Platelet Count 167 K/mcL (140-400); Red Blood Count 2.62 M/mcL (4.19-5.50); Red Cell Distribution Width 16.5 % (11.5-14.5); White Blood Count 4.5 K/mcL (4.3-11.1)
[2020-12-05 06:27] LABS: Alanine Aminotransferase 18 Units/L (7-52); Albumin 2.7 g/dL (3.5-5.7); Albumin/Globulin Ratio 0.7 (1.1-2.2); Alkaline Phosphatase 373 Units/L (34-104); Aspartate Amino Transferase 22 Units/L (13-39); Bilirubin,Direct 0.3 mg/dL (0.0-0.2); Bilirubin,Indirect 0.5 mg/dL (0.0-1.0); Bilirubin,Total 0.8 mg/dL (0.3-1.0); Carbon Dioxide 20 mEq/L (23-29); Chloride 109 mEq/L (98-107); Globulin 3.8 g/dL (2.4-3.5); Glucose 156 mg/dL (70-105); Sodium 138 mEq/L (136-145); Total Protein 6.5 g/dL (6.4-8.9); eGFR For African Americans > 60 (> 60); eGFR For Non-African Americans 52 (> 60)
[2020-12-05 06:32] LABS: BUN/Creatinine Ratio 18 (6-26); Blood Urea Nitrogen 25 mg/dL (8-23); Calcium 7.8 mg/dL (8.6-10.3); Osmolality,Calculated 294 (280-300)
[2020-12-05] MEDS: Levothyroxine 25 MCG TABLET PO SCH (08:10)
[2020-12-05] MEDS: Acetaminophen 325 MG TABLET PO PRN (08:10)
[2020-12-05] MEDS: Aspirin Enteric Coated 81 MG Tablet PO SCH (08:12)
[2020-12-05] MEDS: Chlorhexidine Rinse 15 ML MOUTHWASH PO SCH ×2 (08:13→21:46)
[2020-12-05] MEDS: Insulin LISPRO 300 UNITS/3 ML VIAL SUBQ SCH ×4 (08:19→21:41)
[2020-12-05] MEDS: Nystatin Cream 15 GM TUBE TP SCH (08:22)
[2020-12-05] MEDS: Silver Sulfadiazine 50 GM TUBE TP SCH (08:26)
[2020-12-06] MEDS: Piperacillin/Tazobactam 3.375 GM in 0.9 % Sodium Chloride Mini Bag 100 ML IVPB SCH ×4 (01:01→23:34)
[2020-12-06] MEDS: *HR* Heparin 5,000 UNIT/ML VIAL SQ SCH ×3 (05:25→19:36)
[2020-12-06] MEDS: Silver Sulfadiazine 50 GM TUBE TP SCH ×3 (05:25→19:36)
[2020-12-06] MEDS: Pantoprazole 40 MG VIAL IVP SCH ×2 (05:25→18:17)
[2020-12-06] MEDS: Levothyroxine 25 MCG TABLET PO SCH (05:53)
[2020-12-06 05:56] LABS: Albumin 2.6 g/dL (3.5-5.7); Albumin/Globulin Ratio 0.7 (1.1-2.2); Bilirubin,Direct 0.2 mg/dL (0.0-0.2); Bilirubin,Indirect 0.4 mg/dL (0.0-1.0); Bilirubin,Total 0.6 mg/dL (0.3-1.0); Total Protein 6.6 g/dL (6.4-8.9)
[2020-12-06 06:18] LABS: Hematocrit 25.1 % (37.5-50.1); Hemoglobin 7.6 g/dL (12.9-16.9); Immature Platelets 4.4 % (1.1-6.1); Mean Corpuscular HGB Conc 30.3 g/dL (31.6-35.5); Mean Corpuscular Volume 99.2 fL (83.0-100.0); Mean Platelet Volume 11.2 fL (9.4-12.4); Red Blood Count 2.53 M/mcL (4.19-5.50); Red Cell Distribution Width 16.4 % (11.5-14.5); White Blood Count 3.9 K/mcL (4.3-11.1)
[2020-12-06 06:21] LABS: Calcium 7.6 mg/dL (8.6-10.3); Potassium 4.2 mEq/L (3.5-5.1)
[2020-12-06] MEDS ORDERED: Levothyroxine 25 MCG TABLET PO SCH (06:30)
[2020-12-06] MEDS: Insulin LISPRO 300 UNITS/3 ML VIAL SUBQ SCH ×4 (07:54→19:57)
[2020-12-06] MEDS: Aspirin Enteric Coated 81 MG Tablet PO SCH (09:14)
[2020-12-06] MEDS: Nystatin Cream 15 GM TUBE TP SCH (09:17)
[2020-12-06] MEDS: Chlorhexidine Rinse 15 ML MOUTHWASH PO SCH ×2 (09:17→19:36)
[2020-12-07] MEDS: *HR* Heparin 5,000 UNIT/ML VIAL SQ SCH ×2 (05:09→14:07)
[2020-12-07] MEDS: Pantoprazole 40 MG VIAL IVP SCH ×2 (05:09→17:07)
[2020-12-07] MEDS: Levothyroxine 25 MCG TABLET PO SCH (06:21)
[2020-12-07 07:19] LABS: BUN/Creatinine Ratio 18 (6-26); Blood Urea Nitrogen 26 mg/dL (8-23); Carbon Dioxide 18 mEq/L (23-29); Chloride 109 mEq/L (98-107); Glucose 145 mg/dL (70-105); Osmolality,Calculated 287 (280-300); Potassium 4.3 mEq/L (3.5-5.1); Sodium 135 mEq/L (136-145); eGFR For African Americans > 60 (> 60); eGFR For Non-African Americans 51 (> 60)
[2020-12-07 07:20] LABS: Albumin 2.8 g/dL (3.5-5.7); Albumin/Globulin Ratio 0.7 (1.1-2.2); Bilirubin,Direct 0.3 mg/dL (0.0-0.2); Bilirubin,Indirect 0.3 mg/dL (0.0-1.0); Bilirubin,Total 0.6 mg/dL (0.3-1.0); Total Protein 6.8 g/dL (6.4-8.9)
[2020-12-07] MEDS: Aspirin Enteric Coated 81 MG Tablet PO SCH (09:06)
[2020-12-07] MEDS: Piperacillin/Tazobactam 3.375 GM in 0.9 % Sodium Chloride Mini Bag 100 ML IVPB SCH ×2 (09:06→17:34)
[2020-12-07] MEDS: Insulin LISPRO 300 UNITS/3 ML VIAL SUBQ SCH ×4 (09:09→20:51)
[2020-12-07] MEDS: Nystatin Cream 15 GM TUBE TP SCH (09:10)
[2020-12-07] MEDS: Silver Sulfadiazine 50 GM TUBE TP SCH ×2 (09:10→21:10)
[2020-12-07] MEDS: Chlorhexidine Rinse 15 ML MOUTHWASH PO SCH ×2 (09:10→21:10)
[2020-12-07 09:32] LABS: Basophils % 0.3 %; Hemoglobin 7.6 g/dL (12.9-16.9); Immature Granulocytes % 0.3 % (0-4); Mean Corpuscular Hemoglobin 29.9 pg (28.0-33.3); Red Blood Count 2.54 M/mcL (4.19-5.50)
[2020-12-07 09:34] LABS: Eosinophils # 0.2 K/mcL (0.0-0.6); Eosinophils % 5.1 %; Hematocrit 25.4 % (37.5-50.1); Immature Platelets 7.2 % (1.1-6.1); Lymphocytes # 0.5 K/mcL (0.6-4.6); Lymphocytes % 16.4 %; Mean Corpuscular HGB Conc 29.9 g/dL (31.6-35.5); Mean Platelet Volume 13.4 fL (9.4-12.4); Monocytes # 0.3 K/mcL (0.0-1.3); Monocytes % 10.6 %; Neutrophils # 2.1 K/mcL (1.6-8.9); Red Cell Distribution Width 16.5 % (11.5-14.5); Segmented Neutrophils % 67.3 %; White Blood Count 3.1 K/mcL (4.3-11.1)
[2020-12-07 10:35] LABS: Platelet Count 38 K/mcL (140-400)
[2020-12-07] MEDS ORDERED: Fosfomycin Tromethamine 3 GM Packet PO ONE (11:00)
[2020-12-07 13:09] LABS: Adenovirus Not Detected (Not Detect); Bordetella Pertussis Not Detected (Not Detect); Chlamydophila pneumoniae Not Detected (Not Detect); Coronavirus 229E Not Detected (Not Detect); Coronavirus HKU1 Not Detected (Not Detect); Coronavirus NL63 Not Detected (Not Detect); Coronavirus OC43 Not Detected (Not Detect); Human Metapneumovirus Not Detected (Not Detect); Human Rhinovirus/Enterovirus Not Detected (Not Detect); Influenza A Subtype 2009 H1 Not Detected (Not Detect); Influenza B Not Detected (Not Detect); Mycoplasma pneumoniae Not Detected (Not Detect); Parainfluenza Virus 1 Not Detected (Not Detect); Parainfluenza Virus 2 Not Detected (Not Detect); Parainfluenza Virus 3 Not Detected (Not Detect); Parainfluenza Virus 4 Not Detected (Not Detect); Respiratory Syncytial Virus Not Detected (Not Detect); SARS-CoV-2 Not Detected (Not Detect)
[2020-12-07] MEDS: Folic Acid 1 MG TABLET PO SCH (18:37)
[2020-12-07] MEDS ORDERED: Sodium Chloride for inhalation 3 ML VIAL IH PRN (19:05)
[2020-12-07 21:23] LABS: Mean Corpuscular Volume 98.8 fL (83.0-100.0); White Blood Count 3.4 K/mcL (4.3-11.1)
[2020-12-07 21:24] LABS: Hematocrit 24.8 % (37.5-50.1); Hemoglobin 7.5 g/dL (12.9-16.9); Mean Corpuscular HGB Conc 30.2 g/dL (31.6-35.5); Mean Corpuscular Hemoglobin 29.9 pg (28.0-33.3); Red Blood Count 2.51 M/mcL (4.19-5.50); Red Cell Distribution Width 16.5 % (11.5-14.5)
[2020-12-07 21:26] LABS: Platelet Count 19 K/mcL (140-400)
[2020-12-08] MEDS: Piperacillin/Tazobactam 3.375 GM in 0.9 % Sodium Chloride Mini Bag 100 ML IVPB SCH (00:30)
[2020-12-08] MEDS: Levothyroxine 25 MCG TABLET PO SCH (05:25)
[2020-12-08 05:48] LABS: Basophils % 0.3 %; Hematocrit 25.5 % (37.5-50.1); Immature Granulocytes % 0.3 % (0-4); Mean Corpuscular Volume 99.6 fL (83.0-100.0); Red Blood Count 2.56 M/mcL (4.19-5.50); Red Cell Distribution Width 16.4 % (11.5-14.5)
[2020-12-08 05:50] LABS: Eosinophils # 0.2 K/mcL (0.0-0.6); Eosinophils % 5.6 %; Hemoglobin 7.8 g/dL (12.9-16.9); Immature Platelets 8.2 % (1.1-6.1); Lymphocytes # 0.7 K/mcL (0.6-4.6); Lymphocytes % 18.3 %; Mean Corpuscular HGB Conc 30.6 g/dL (31.6-35.5); Mean Corpuscular Hemoglobin 30.5 pg (28.0-33.3); Monocytes # 0.4 K/mcL (0.0-1.3); Monocytes % 10.8 %; Neutrophils # 2.3 K/mcL (1.6-8.9); Segmented Neutrophils % 64.7 %; White Blood Count 3.6 K/mcL (4.3-11.1)
[2020-12-08 06:01] LABS: Platelet Count 13 K/mcL (140-400)
[2020-12-08 06:03] LABS: Calcium 7.8 mg/dL (8.6-10.3); Potassium 4.2 mEq/L (3.5-5.1)
[2020-12-08 06:04] LABS: Platelet Estimate Decreased (Normal); Reactive Lymphocytes Present (Not Present)
[2020-12-08 06:24] LABS: Toxic Granulation Present (Not Present)
[2020-12-08] MEDS: Insulin LISPRO 300 UNITS/3 ML VIAL SUBQ SCH ×4 (08:56→21:30)
[2020-12-08] MEDS: Folic Acid 1 MG TABLET PO SCH (09:02)
[2020-12-08] MEDS: Aspirin Enteric Coated 81 MG Tablet PO SCH (09:02)
[2020-12-08 09:25] LABS: INR 1.2; Prothrombin Time 13.3 Seconds (9.4-12.1)
[2020-12-08 09:27] LABS: Activated Partial Thrombo Time 29.6 Seconds (26.0-36.0)
[2020-12-08] MEDS: Chlorhexidine Rinse 15 ML MOUTHWASH PO SCH ×2 (10:33→20:00)
[2020-12-08] MEDS: Nystatin Cream 15 GM TUBE TP SCH (10:33)
[2020-12-08] MEDS: Silver Sulfadiazine 50 GM TUBE TP SCH ×2 (10:34→20:00)
[2020-12-09 04:25] LABS: Alanine Aminotransferase 9 Units/L (7-52); Albumin 2.8 g/dL (3.5-5.7); Albumin/Globulin Ratio 0.6 (1.1-2.2); Alkaline Phosphatase 186 Units/L (34-104); Aspartate Amino Transferase 14 Units/L (13-39); BUN/Creatinine Ratio 19 (6-26); Bilirubin,Total 0.5 mg/dL (0.3-1.0); Blood Urea Nitrogen 26 mg/dL (8-23); C-Reactive Protein 65 mg/L (Less than 10); Calcium 7.7 mg/dL (8.6-10.3); Carbon Dioxide 18 mEq/L (23-29); Chloride 108 mEq/L (98-107); Globulin 4.4 g/dL (2.4-3.5); Glucose 169 mg/dL (70-105); Lactate Dehydrogenase 130 Units/L (140-271); Osmolality,Calculated 289 (280-300); Potassium 4.1 mEq/L (3.5-5.1); Sodium 135 mEq/L (136-145); Total Protein 7.2 g/dL (6.4-8.9); eGFR For African Americans > 60 (> 60); eGFR For Non-African Americans 53 (> 60)
[2020-12-09 04:27] LABS: Thyroid Stimulating Hormone 12.339 mcIU/mL (0.340-5.600)
[2020-12-09 04:37] LABS: Basophils % 0.3 %; Eosinophils # 0.2 K/mcL (0.0-0.6); Hematocrit 25.2 % (37.5-50.1); Hemoglobin 7.7 g/dL (12.9-16.9); Immature Granulocytes % 0.6 % (0-4); Immature Platelets 6.3 % (1.1-6.1); Immature Reticulocyte % 19.9 % (11.0-38.0); Lymphocytes # 0.6 K/mcL (0.6-4.6); Lymphocytes % 17.6 %; Mean Corpuscular HGB Conc 30.6 g/dL (31.6-35.5); Mean Corpuscular Volume 98.1 fL (83.0-100.0); Mean Platelet Volume 11.6 fL (9.4-12.4); Monocytes # 0.4 K/mcL (0.0-1.3); Monocytes % 11.9 %; Red Blood Count 2.57 M/mcL (4.19-5.50); Red Cell Distribution Width 16.4 % (11.5-14.5); Retculocyte # 0.03 M/mcL (0.05-0.10); Reticulocyte % 1.2 % (1.6-2.8); Segmented Neutrophils % 63.6 %; White Blood Count 3.2 K/mcL (4.3-11.1)
[2020-12-09 04:38] LABS: Platelet Count 72 K/mcL (140-400)
[2020-12-09] MEDS: Levothyroxine 25 MCG TABLET PO SCH (05:58)
[2020-12-09] MEDS: Aspirin Enteric Coated 81 MG Tablet PO SCH (08:38)
[2020-12-09] MEDS: Nystatin Cream 15 GM TUBE TP SCH (08:39)
[2020-12-09] MEDS: Insulin LISPRO 300 UNITS/3 ML VIAL SUBQ SCH ×4 (08:39→20:22)
[2020-12-09] MEDS: Chlorhexidine Rinse 15 ML MOUTHWASH PO SCH ×2 (08:39→20:22)
[2020-12-09] MEDS: Folic Acid 1 MG TABLET PO SCH (08:39)
[2020-12-09] MEDS: Silver Sulfadiazine 50 GM TUBE TP SCH ×2 (08:40→20:23)
[2020-12-10] MEDS: Piperacillin/Tazobactam 3.375 GM in 0.9 % Sodium Chloride Mini Bag 100 ML IVPB SCH (01:06)
[2020-12-10 03:32] LABS: Hematocrit 25.2 % (37.5-50.1); Hemoglobin 7.7 g/dL (12.9-16.9); Mean Corpuscular HGB Conc 30.6 g/dL (31.6-35.5); Mean Corpuscular Hemoglobin 29.7 pg (28.0-33.3); Mean Corpuscular Volume 97.3 fL (83.0-100.0); Mean Platelet Volume 10.9 fL (9.4-12.4); Platelet Count 134 K/mcL (140-400); Red Blood Count 2.59 M/mcL (4.19-5.50); Red Cell Distribution Width 16.3 % (11.5-14.5); White Blood Count 3.4 K/mcL (4.3-11.1)
[2020-12-10 03:58] LABS: Alanine Aminotransferase 9 Units/L (7-52); Albumin 2.9 g/dL (3.5-5.7); Albumin/Globulin Ratio 0.7 (1.1-2.2); Alkaline Phosphatase 173 Units/L (34-104); Aspartate Amino Transferase 14 Units/L (13-39); BUN/Creatinine Ratio 21 (6-26); Bilirubin,Direct 0.2 mg/dL (0.0-0.2); Bilirubin,Indirect 0.3 mg/dL (0.0-1.0); Bilirubin,Total 0.5 mg/dL (0.3-1.0); Blood Urea Nitrogen 27 mg/dL (8-23); Calcium 8.1 mg/dL (8.6-10.3); Carbon Dioxide 20 mEq/L (23-29); Chloride 108 mEq/L (98-107); Globulin 4.1 g/dL (2.4-3.5); Glucose 170 mg/dL (70-105); Osmolality,Calculated 287 (280-300); Potassium 4.3 mEq/L (3.5-5.1); Sodium 134 mEq/L (136-145); eGFR For African Americans > 60 (> 60); eGFR For Non-African Americans 58 (> 60)
[2020-12-10] MEDS: Levothyroxine 25 MCG TABLET PO SCH ×2 (06:15→08:50)
[2020-12-10] MEDS: Folic Acid 1 MG TABLET PO SCH (08:48)
[2020-12-10] MEDS: Aspirin Enteric Coated 81 MG Tablet PO SCH (08:48)
[2020-12-10] MEDS: Chlorhexidine Rinse 15 ML MOUTHWASH PO SCH ×2 (08:51→22:03)
[2020-12-10] MEDS: Insulin LISPRO 300 UNITS/3 ML VIAL SUBQ SCH ×4 (08:56→20:55)
[2020-12-10 12:22] LABS: Influenza A PCR Negative (Negative); Influenza B PCR Negative (Negative); Resp. Syncytial Virus PCR Negative (Negative)
[2020-12-10 12:48] LABS: SARS-CoV-2 by PCR (In House) Positive (Negative)
[2020-12-10] MEDS: Silver Sulfadiazine 50 GM TUBE TP SCH (19:17)
[2020-12-10] MEDS: Nystatin Cream 15 GM TUBE TP SCH (19:17)
[2020-12-10 22:05] LABS: Lambda Qnt Free Light Chains 233.65 mg/L (5.71-26.30)
[2020-12-11] MEDS: Silver Sulfadiazine 50 GM TUBE TP SCH ×3 (00:15→19:37)
[2020-12-11] MEDS: Levothyroxine 25 MCG TABLET PO SCH (05:55)
[2020-12-11 06:24] LABS: Hematocrit 25.7 % (37.5-50.1); Hemoglobin 7.7 g/dL (12.9-16.9); Mean Corpuscular Hemoglobin 29.7 pg (28.0-33.3); Mean Corpuscular Volume 99.2 fL (83.0-100.0); Mean Platelet Volume 10.3 fL (9.4-12.4); Platelet Count 190 K/mcL (140-400); Red Blood Count 2.59 M/mcL (4.19-5.50); Red Cell Distribution Width 16.3 % (11.5-14.5); White Blood Count 3.4 K/mcL (4.3-11.1)
[2020-12-11 06:56] LABS: BUN/Creatinine Ratio 18 (6-26); Blood Urea Nitrogen 23 mg/dL (8-23); Calcium 8.2 mg/dL (8.6-10.3); Carbon Dioxide 22 mEq/L (23-29); Chloride 109 mEq/L (98-107); Glucose 169 mg/dL (70-105); Osmolality,Calculated 292 (280-300); Potassium 4.3 mEq/L (3.5-5.1); Sodium 137 mEq/L (136-145); eGFR For African Americans > 60 (> 60); eGFR For Non-African Americans 56 (> 60)
[2020-12-11] MEDS: Insulin LISPRO 300 UNITS/3 ML VIAL SUBQ SCH ×4 (08:10→21:20)
[2020-12-11] MEDS: Chlorhexidine Rinse 15 ML MOUTHWASH PO SCH ×2 (10:14→21:20)
[2020-12-11] MEDS: Aspirin Enteric Coated 81 MG Tablet PO SCH (10:14)
[2020-12-11] MEDS: Folic Acid 1 MG TABLET PO SCH (10:14)
[2020-12-11 11:21] LABS: Kappa Qnt Free Light Chains 317.41 mg/L (3.30-19.40)
[2020-12-11 11:21] LABS: Thrombin Time 18.3 sec (14.7-19.5)
[2020-12-11] MEDS: Nystatin Cream 15 GM TUBE TP SCH (12:00)
[2020-12-11 12:09] LABS: Adenovirus Not Detected (Not Detect); Bordetella Pertussis Not Detected (Not Detect); Chlamydophila pneumoniae Not Detected (Not Detect); Coronavirus 229E Not Detected (Not Detect); Coronavirus HKU1 Not Detected (Not Detect); Coronavirus NL63 Not Detected (Not Detect); Coronavirus OC43 Not Detected (Not Detect); Human Metapneumovirus Not Detected (Not Detect); Human Rhinovirus/Enterovirus Not Detected (Not Detect); Influenza A Subtype 2009 H1 Not Detected (Not Detect); Influenza B Not Detected (Not Detect); Mycoplasma pneumoniae Not Detected (Not Detect); Parainfluenza Virus 1 Not Detected (Not Detect); Parainfluenza Virus 2 Not Detected (Not Detect); Parainfluenza Virus 3 Not Detected (Not Detect); Parainfluenza Virus 4 Not Detected (Not Detect); Respiratory Syncytial Virus Not Detected (Not Detect)
[2020-12-11 12:11] LABS: SARS-CoV-2 DETECTED (Not Detect)
[2020-12-12 01:04] LABS: Beta Globulin (PEP) 0.83 g/dL (0.48-1.10)
[2020-12-12] MEDS: Insulin LISPRO 300 UNITS/3 ML VIAL SUBQ SCH ×3 (08:34→17:52)
[2020-12-12] MEDS: Nystatin Cream 15 GM TUBE TP SCH (08:35)
[2020-12-12] MEDS: Silver Sulfadiazine 50 GM TUBE TP SCH (08:35)
[2020-12-12] MEDS: Aspirin Enteric Coated 81 MG Tablet PO SCH (09:13)
[2020-12-12] MEDS: Folic Acid 1 MG TABLET PO SCH (09:13)
[2020-12-12] MEDS: Levothyroxine 25 MCG TABLET PO SCH (09:13)
[2020-12-12] MEDS: Chlorhexidine Rinse 15 ML MOUTHWASH PO SCH (09:13)
[2020-12-12 09:53] LABS: IFE Reflexed NOT DONE
[2020-12-12] MEDS ORDERED: Bamlanivimab 700 MG, Etesevimab 1,400 MG in 0.9 % Sodium Chloride 100 ML IVPB ONE ×2 (18:00→18:54)
[2020-12-12] MEDS ORDERED: methylPREDNISolone 125 MG/2 ML VIAL IVP PRN (18:49)
[2020-12-12] MEDS ORDERED: Ondansetron 4 MG/2 ML VIAL IVP PRN (18:49)
[2020-12-12] MEDS ORDERED: EPINEPHrine 1 MG/ML VIAL IM PRN (18:49)
[2020-12-13] MEDS: Chlorhexidine Rinse 15 ML MOUTHWASH PO SCH ×3 (01:43→21:24)
[2020-12-13] MEDS: Insulin LISPRO 300 UNITS/3 ML VIAL SUBQ SCH ×5 (01:43→21:33)
[2020-12-13] MEDS: Silver Sulfadiazine 50 GM TUBE TP SCH ×3 (01:44→21:24)
[2020-12-13] MEDS: Aspirin Enteric Coated 81 MG Tablet PO SCH (07:58)
[2020-12-13] MEDS: Folic Acid 1 MG TABLET PO SCH (07:58)
[2020-12-13] MEDS: Nystatin Cream 15 GM TUBE TP SCH (07:59)
[2020-12-13] MEDS: Levothyroxine 25 MCG TABLET PO SCH (07:59)
[2020-12-13 22:28] LABS: Basophils % 0.7 %; Eosinophils # 0.2 K/mcL (0.0-0.6); Eosinophils % 5.5 %; Hemoglobin 7.8 g/dL (12.9-16.9); Immature Granulocytes % 0.5 % (0-4); Lymphocytes # 0.8 K/mcL (0.6-4.6); Lymphocytes % 17.4 %; Mean Corpuscular Hemoglobin 29.5 pg (28.0-33.3); Mean Corpuscular Volume 98.5 fL (83.0-100.0); Mean Platelet Volume 9.4 fL (9.4-12.4); Monocytes # 0.5 K/mcL (0.0-1.3); Monocytes % 10.3 %; Neutrophils # 2.9 K/mcL (1.6-8.9); Platelet Count 367 K/mcL (140-400); Red Blood Count 2.64 M/mcL (4.19-5.50); Red Cell Distribution Width 16.6 % (11.5-14.5); Segmented Neutrophils % 65.6 %; White Blood Count 4.4 K/mcL (4.3-11.1)
[2020-12-13 22:47] LABS: BUN/Creatinine Ratio 22 (6-26); Blood Urea Nitrogen 28 mg/dL (8-23); Calcium 8.2 mg/dL (8.6-10.3); Carbon Dioxide 20 mEq/L (23-29); Chloride 108 mEq/L (98-107); Glucose 153 mg/dL (70-105); Osmolality,Calculated 289 (280-300); Potassium 4.2 mEq/L (3.5-5.1); Sodium 135 mEq/L (136-145); eGFR For African Americans > 60 (> 60); eGFR For Non-African Americans 56 (> 60)
[2020-12-14 02:55] LABS: Hematocrit 25.1 % (37.5-50.1); Hemoglobin 7.6 g/dL (12.9-16.9); Mean Corpuscular HGB Conc 30.3 g/dL (31.6-35.5); Mean Corpuscular Volume 99.2 fL (83.0-100.0); Platelet Count 357 K/mcL (140-400); Red Blood Count 2.53 M/mcL (4.19-5.50); Red Cell Distribution Width 16.5 % (11.5-14.5); White Blood Count 5.2 K/mcL (4.3-11.1)
[2020-12-14 03:25] LABS: Alanine Aminotransferase 4 Units/L (7-52); Albumin 2.9 g/dL (3.5-5.7); Albumin/Globulin Ratio 0.7 (1.1-2.2); Alkaline Phosphatase 117 Units/L (34-104); Aspartate Amino Transferase 14 Units/L (13-39); BUN/Creatinine Ratio 22 (6-26); Bilirubin,Total 0.5 mg/dL (0.3-1.0); Blood Urea Nitrogen 28 mg/dL (8-23); Calcium 8.3 mg/dL (8.6-10.3); Carbon Dioxide 18 mEq/L (23-29); Chloride 109 mEq/L (98-107); Globulin 4.4 g/dL (2.4-3.5); Glucose 141 mg/dL (70-105); Osmolality,Calculated 286 (280-300); Potassium 4.4 mEq/L (3.5-5.1); Sodium 134 mEq/L (136-145); Total Protein 7.3 g/dL (6.4-8.9); eGFR For African Americans > 60 (> 60); eGFR For Non-African Americans 55 (> 60)
[2020-12-14] MEDS: Levothyroxine 25 MCG TABLET PO SCH (05:53)
[2020-12-14] MEDS: Aspirin Enteric Coated 81 MG Tablet PO SCH (09:01)
[2020-12-14] MEDS: Folic Acid 1 MG TABLET PO SCH (09:01)
[2020-12-14] MEDS: Chlorhexidine Rinse 15 ML MOUTHWASH PO SCH ×2 (09:02→22:07)
[2020-12-14] MEDS: Insulin LISPRO 300 UNITS/3 ML VIAL SUBQ SCH ×4 (09:05→21:52)
[2020-12-14] MEDS: Silver Sulfadiazine 50 GM TUBE TP SCH ×2 (15:58→21:52)
[2020-12-14] MEDS: Nystatin Cream 15 GM TUBE TP SCH (15:58)
[2020-12-15] MEDS: Levothyroxine 25 MCG TABLET PO SCH (06:09)
[2020-12-15 06:48] LABS: Hematocrit 27.9 % (37.5-50.1); Hemoglobin 8.4 g/dL (12.9-16.9); Mean Corpuscular HGB Conc 30.1 g/dL (31.6-35.5); Mean Corpuscular Hemoglobin 29.9 pg (28.0-33.3); Mean Corpuscular Volume 99.3 fL (83.0-100.0); Mean Platelet Volume 9.6 fL (9.4-12.4); Platelet Count 416 K/mcL (140-400); Red Blood Count 2.81 M/mcL (4.19-5.50); Red Cell Distribution Width 16.6 % (11.5-14.5); White Blood Count 4.8 K/mcL (4.3-11.1)
[2020-12-15 07:09] LABS: Alanine Aminotransferase 7 Units/L (7-52); Albumin 3.1 g/dL (3.5-5.7); Albumin/Globulin Ratio 0.7 (1.1-2.2); Alkaline Phosphatase 125 Units/L (34-104); Aspartate Amino Transferase 12 Units/L (13-39); BUN/Creatinine Ratio 20 (6-26); Bilirubin,Total 0.6 mg/dL (0.3-1.0); Blood Urea Nitrogen 26 mg/dL (8-23); Calcium 8.7 mg/dL (8.6-10.3); Carbon Dioxide 21 mEq/L (23-29); Chloride 107 mEq/L (98-107); Globulin 4.5 g/dL (2.4-3.5); Glucose 152 mg/dL (70-105); Osmolality,Calculated 288 (280-300); Potassium 4.1 mEq/L (3.5-5.1); Sodium 135 mEq/L (136-145); Total Protein 7.6 g/dL (6.4-8.9); eGFR For African Americans > 60 (> 60); eGFR For Non-African Americans 55 (> 60)
[2020-12-15] MEDS: Insulin LISPRO 300 UNITS/3 ML VIAL SUBQ SCH ×4 (07:35→21:55)
[2020-12-15] MEDS: Aspirin Enteric Coated 81 MG Tablet PO SCH (09:26)
[2020-12-15] MEDS: Folic Acid 1 MG TABLET PO SCH (09:26)
[2020-12-15] MEDS: Chlorhexidine Rinse 15 ML MOUTHWASH PO SCH ×2 (09:27→21:55)
[2020-12-15] MEDS: Ammonium Lactate 30 APPL/225 GM BOTTLE TP SCH ×2 (09:38→21:55)
[2020-12-15] MEDS: Nystatin Cream 15 GM TUBE TP SCH (09:38)
[2020-12-15] MEDS: Silver Sulfadiazine 50 GM TUBE TP SCH ×2 (09:38→21:55)
[2020-12-16] MEDS: Levothyroxine 25 MCG TABLET PO SCH (05:43)
[2020-12-16 06:40] LABS: Hematocrit 26.6 % (37.5-50.1); Hemoglobin 7.9 g/dL (12.9-16.9); Mean Corpuscular HGB Conc 29.7 g/dL (31.6-35.5); Mean Corpuscular Hemoglobin 29.8 pg (28.0-33.3); Mean Corpuscular Volume 100.4 fL (83.0-100.0); Mean Platelet Volume 9.6 fL (9.4-12.4); Platelet Count 411 K/mcL (140-400); Red Blood Count 2.65 M/mcL (4.19-5.50); Red Cell Distribution Width 17.1 % (11.5-14.5); White Blood Count 4.4 K/mcL (4.3-11.1)
[2020-12-16 07:01] LABS: Alanine Aminotransferase 7 Units/L (7-52); Albumin 2.9 g/dL (3.5-5.7); Albumin/Globulin Ratio 0.7 (1.1-2.2); Alkaline Phosphatase 110 Units/L (34-104); Aspartate Amino Transferase 10 Units/L (13-39); BUN/Creatinine Ratio 21 (6-26); Bilirubin,Total 0.5 mg/dL (0.3-1.0); Blood Urea Nitrogen 27 mg/dL (8-23); Calcium 8.4 mg/dL (8.6-10.3); Carbon Dioxide 23 mEq/L (23-29); Chloride 108 mEq/L (98-107); Globulin 4.4 g/dL (2.4-3.5); Glucose 182 mg/dL (70-105); Osmolality,Calculated 292 (280-300); Sodium 136 mEq/L (136-145); Total Protein 7.3 g/dL (6.4-8.9); eGFR For African Americans > 60 (> 60); eGFR For Non-African Americans 56 (> 60)
[2020-12-16] MEDS: Chlorhexidine Rinse 15 ML MOUTHWASH PO SCH ×2 (08:21→21:15)
[2020-12-16] MEDS: Aspirin Enteric Coated 81 MG Tablet PO SCH (08:21)
[2020-12-16] MEDS: Folic Acid 1 MG TABLET PO SCH (08:21)
[2020-12-16] MEDS: Insulin LISPRO 300 UNITS/3 ML VIAL SUBQ SCH ×4 (08:43→21:22)
[2020-12-16] MEDS: Nystatin Cream 15 GM TUBE TP SCH (15:10)
[2020-12-16] MEDS: Ammonium Lactate 30 APPL/225 GM BOTTLE TP SCH ×2 (15:10→20:08)
[2020-12-16] MEDS: Silver Sulfadiazine 50 GM TUBE TP SCH ×2 (15:10→20:09)
[2020-12-17 03:07] LABS: Hematocrit 25.6 % (37.5-50.1); Hemoglobin 7.9 g/dL (12.9-16.9); Mean Corpuscular HGB Conc 30.9 g/dL (31.6-35.5); Mean Corpuscular Volume 100.4 fL (83.0-100.0); Mean Platelet Volume 9.6 fL (9.4-12.4); Platelet Count 398 K/mcL (140-400); Red Blood Count 2.55 M/mcL (4.19-5.50); White Blood Count 4.7 K/mcL (4.3-11.1)
[2020-12-17 03:37] LABS: Calcium 8.3 mg/dL (8.6-10.3); Potassium 4.2 mEq/L (3.5-5.1)
[2020-12-17] MEDS: Levothyroxine 25 MCG TABLET PO SCH (06:51)
[2020-12-17] MEDS: Silver Sulfadiazine 50 GM TUBE TP SCH (07:45)
[2020-12-17] MEDS: Aspirin Enteric Coated 81 MG Tablet PO SCH (08:45)
[2020-12-17] MEDS: Insulin LISPRO 300 UNITS/3 ML VIAL SUBQ SCH (08:45)
[2020-12-17] MEDS: Nystatin Cream 15 GM TUBE TP SCH (08:45)
[2020-12-17] MEDS: Chlorhexidine Rinse 15 ML MOUTHWASH PO SCH (08:45)
[2020-12-17] MEDS: Folic Acid 1 MG TABLET PO SCH (08:45)
[2020-12-17] MEDS: Ammonium Lactate 30 APPL/225 GM BOTTLE TP SCH (08:45)
[2020-12-17] MEDS ORDERED: Insulin DETEMIR 100 UNIT/ML X5UNITS SUBQ SCH (09:00)
[2020-12-17 11:46] VITALS: BP 104/56; PULSE 54; TEMP 98.9; O2SAT 100
== END 2020-12-17 17:00 | DRG 710 ==
LOC: EMEROOARM 14:54 → 3ANU 14:54 → OBSVTOIN 21:57 → SUATTDRO 21:57 → ICNU 23:00 → 2NNU 11-29 13:41
PROVIDERS: ADMIT Student in an Organized Health Care Education/Training Program; ATTEND Internal Medicine